=== PATIENT | female | born 1995 | race Hispanic/Latino ===

== ENCOUNTER 2017-08-16 17:52 | Emergency (ER) | payer MEDICAID, SELFPAY ==
[2017-08-16] MEDS ORDERED: Ibuprofen 200 MG TAB ONE (18:05)
== END 2017-08-16 20:02 | disposition home or self-care (01) ==
LOC: ERS 17:52
DX: J10.1 Influenza due to other identified influenza virus with other respiratory manifestations (principal)
CPT/HCPCS: 87804; 99283

== ENCOUNTER 2020-04-11 19:50 | Day surgery (SDC) | payer SELFPAY ==
[2020-04-11 20:21] VITALS: BMI 27.3
[2020-04-11 20:27] VITALS: BP 110/65; TEMP 98.9
--- NOTE | 2020-04-11 20:47 | PDOC.FPROB ---
FMR OB H&P: HPI - History of Present Illness Chief Complaint: leakage of fluid History of Present Illness: Pt is a 24yo female who presents for evalution of LOF for one day. Described as clear/yellowish fluid the consistency of water. Her underwear would be slightly wet, but did not soak through. +FM, irregular contractions, non-painful. Endorses vaginal pain. Hx of vaginal candidiasis this and was treated. Denies vaginal bleeding/discharge/itching. Primary Care Physician: TORSTEN Gan FMR OB H&P: Current - Care : 4 Para: 2102 Due date: 04/25/20 Dating Criteria: 5.4 wk sono - OB Labs Blood type: B RH: positive Antibody Screen: negative HIV: negative RPR: negative Rubella: immune Gonorrhea: negative Chlamydia: negative Pap Smear: NILM, 10/08/19 1 hour gtt: 2hr GTT 66/166/98 GBS: positive H&H: 02/07/20 11.4/32.8 Platelets: 215 Additional labs: sabino 10/2019 - Additional Ultrasound Additional: 04/01/20 [place] 89% FMR OB H&P: History - Past Medical History PMH: mild, intermittent asthma - OB History OB History: 03/16/20: presented to L&D for ctx, given 2 doses steroids 04/05/20: presented to L&D for ctx, /-3 2 deliveries at 37 wks, 1 @ 36wks, NSVDx3 Tdap on 02/02/20 - 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 - Surgical History Sx History: none - Social History Social History: no T/A/D - Family History Family History: Paternal grandmother- diabetes FMR OB H&P: Medications - Current Home Medications: Medication Instructions Recorded Confirmed Type Vitamin 1 tab PO DAILY #0 tab 02/17/04/05/20 Rx Allergies/Adverse Reactions: Allergies Allergy/AdvReac Type Severity Reaction Status Date / Time No Known Allergies Allergy Verified 04/11/20 20:19 FMR OB H&P: ROS - Review of Systems General: denies: fever/chills, fatigue Eyes: denies: vision changes, scotomas, floaters ENT: denies: rhinorrhea Cardiovascular: denies: chest pain, palpitation, edema Respiratory: denies: cough, congestion, shortness of breath Gastrointestinal: denies: abdominal pain, nausea, vomiting, diarrhea Genitourinary (Female): reports: incontinence, vaginal pain. denies: dysuria, vaginal discharge, vaginal bleeding, contractions Integumentary: denies: itching FMR OB H&P: Vital Signs - Maternal Vital signs: Vital Signs - First Documented Temp Pulse Resp BP 98.9 F 88 18 110/65 04/11/20 20:19 04/11/20 20:19 04/11/20 20:19 04/11/20 20:19 - Heart Tones Baseline: 140 Variability: moderate Acceleration: present Deceleration: absent Category: category 1 FMR OB H&P: Physical Exam - Physical Exam General: NAD, awake, alert and oriented HEENT: normocephalic and atraumatic, no scleral icterus, grossly normal vision, grossly normal hearing Neck: supple, FROM Heart: no edema General: no respiratory distress Abdomen: gravid Musculoskeletal: normal gait and station, no misalignment/asymmetry Neurological: no focal deficit Skin: no rash, no jaundice Psychiatric: intact recent and remote memory - Pelvic Exam Deviation from normal: no pooling of fluid, no expression of fluid with cough Deviation from normal: thick white discharge SVE: 50/-3 FMR OB H&P: A/P Discussion: Date/Time: 04/11/202044 #LOF - sterile spec exam showed no pooling or expression of fluid with cough, likely urinary incontinence - pending amnisure #vaginal discharge - on spec exam, white discharge noted, pt denies any itching, but c/o pain - pending: VP3 #sIUP - 3rd trimester , Tdap given 01/2020 - GBS positive - FHT: Cat 1 140/mod/+accel, no decels - SVE 50/-3, no change from exam one week ago - irregular, non-painful ctx - seen in hospital on 03/16/20 with complaint of contractions, given 2 doses steroid - continue routine f/u This H&P was discussed with Dr. Louie and Dr. Varghese Kelly who agree with the above documentation and plan.
[2020-04-11 21:37] LABS: Amnisure Test No Membranes Rupture (No Rupture)
[2020-04-11 21:38] LABS: Amnisure Internal Control QC ACCEPTABLE (ACCEPTABLE)
--- NOTE | 2020-04-11 22:19 | PDOC.BPN ---
- Brief Progress Note Encounter Date: 04/11/20 Encounter Time: 22:30 Pt is a 24yo female who presents for evalution of LOF for one day. -amnisure negative -VP3 postitive for sabino -FHT: Cat 1 baseline 140, mod gena, +accel, no decel -irregular contractions -SVE /-3, unchanged from one week ago Pt had no complaints and was agreeable to discharge. Will send in rx for diflucan. Pt to f/u outpatient with regular appointments Pily Diane, PGY1 Case discussed with Dr. Louie and Dr. Varghese Kelly who agree with the above documentation and plan.
== END 2020-04-11 22:40 | disposition home health service (06) ==
LOC: L&D/OP 19:50
DX: O99.89 Other specified diseases and conditions complicating pregnancy, childbirth and the puerperium (principal); N89.8 Other specified noninflammatory disorders of vagina; O98.813 Other maternal infectious and parasitic diseases complicating pregnancy, third trimester; B37.3 Candidiasis of vulva and vagina; O99.513 Diseases of the respiratory system complicating pregnancy, third trimester; J45.20 Mild intermittent asthma, uncomplicated; O99.820 Streptococcus B carrier state complicating pregnancy; Z3A.00 Weeks of gestation of pregnancy not specified
CPT/HCPCS: 84112; 87480; 87510; 87660; 99285

== ENCOUNTER 2020-04-20 16:39 | Inpatient (IN) | payer MEDICAID, OTHER ==
[2020-04-20] MEDS ORDERED: Lidocaine 1% (PF) 30 ML VIAL ONE (17:06)
[2020-04-20] MEDS ORDERED: NS / Oxytocin 40 units/1000ml 1,000 ML ONE (17:06)
[2020-04-20] MEDS ORDERED: Ondansetron PF 4 MG/2 ML Vial IVP PRN (17:11)
[2020-04-20] MEDS ORDERED: Butorphanol Tartrate 1 MG/ML VIAL SLOW IVP PRN (17:11)
[2020-04-20] MEDS ORDERED: Ibuprofen 800 MG TAB PO PRN (17:11)
[2020-04-20] MEDS ORDERED: Lidocaine 1% (PF) 30 ML VIAL SC PRN (17:11)
[2020-04-20] MEDS ORDERED: Misoprostol 200 MCG TAB PR PRN (17:11)
[2020-04-20] MEDS ORDERED: Acetaminophen 500 MG TAB PO PRN (17:11)
[2020-04-20] MEDS ORDERED: NS / Oxytocin 40 units/1000ml 1,000 ML IV PRN (17:11)
[2020-04-20] MEDS ORDERED: Promethazine HCl 25 MG/ML VIAL IM PRN (17:11)
[2020-04-20] MEDS ORDERED: Carboprost 250 MCG/ML AMP IM PRN (17:11)
[2020-04-20] MEDS ORDERED: hydrALAZINE 20 MG/ML VIAL SLOW IVP PRN ×2 (17:11→23:10)
[2020-04-20] MEDS ORDERED: Methylergonovine 0.2 MG/ML VIAL IM PRN (17:11)
[2020-04-20 17:22] LABS: Hemoglobin 11.7 g/dL (12.0-16.0); Mean Corpuscular HGB CONC 34.3 g/dL (32.0-36.0); Mean Corpuscular Hemoglobin 31.4 pg (27.0-31.0); Mean Corpuscular Volume 91.6 fL (78.0-98.0); Mean Platelet Volume 10.9 fL (7.4-10.4); Platelet Count 181 thou/uL (130-400); RBC Distribution Width 12.6 % (11.5-14.5); Red Blood Cell (RBC) Count 3.73 mill/uL (4.20-5.40); White Blood Cell (WBC) Count 8.9 thou/uL (4.8-10.8)
[2020-04-20] MEDS ORDERED: Fentanyl 4 mcg/Bup 0.1% Cadd 0 ML ONE (17:22)
[2020-04-20] MEDS ORDERED: Penicillin G Potassium 5 MILL.UNITS VIAL ONE (17:23)
--- NOTE | 2020-04-20 17:27 | PDOC.FPROB ---
FMR OB H&P: HPI - History of Present Illness Chief Complaint: contractions Indentification: 24F @ 39.2wga History of Present Illness: Patient is a 24F @ 39.2wga by 5.4wk sono presents with contractions. Contractions started at 230pm this afternoon. [place] to help them [place]. She states that she is feeling them every 2 minutes. Denies VD, VB, LOF. Denies SOB, LOPEZ, cp, abdominal pain, edema. Desires an epidural. GBS +. Hx of sabino vaginitis, treated. otherwise uncomplicated-see OB section for hx. Primary Care Physician: Nikhil FMR OB H&P: Current - Care : 4 Para: 3 Gestational age: 39.2 Due date: 04/25/20 Dating Criteria: 5.4wk sono - OB Labs Blood type: B RH: positive Antibody Screen: negative HIV: negative RPR: negative HepBsAg: negative Rubella: immune Gonorrhea: negative Chlamydia: negative Pap Smear: NILM 10/08/19 3 hour GTT: 66/166/98 GBS: positive H&H: 11.4/32.8 on 02/07/20 Platelets: 215 on 02/07/20 - Anatomy Survey Anatomy survey: sIUP, Cephalic, anterior placenta, 3 vessel cord, normal insertion FMR OB H&P: History - Past Medical History PMH: Asthma - OB History OB History: Hx of spontaneous labor: declined 17-OHP Hx of SGA fetus; 04/01 US for growth 89.8% 02/17/16- @ 38wga 03/11/15- @ 36wga 03/20/14- @ 39wga - 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: Hx of chlamydia in 2013, negative this - Social History Social History: Denies alcohol, smoking, drug use - Family History Family History: Family hx of DM in mother FMR OB H&P: Medications - Current Home Medications: Medication Instructions Recorded Confirmed Type Vitamin 1 tab PO DAILY #0 tab 02/18/16 04/05/20 Rx Fluconazole [Diflucan] 150 mg PO ONE #1 tablet 04/11/20 Rx Allergies/Adverse Reactions: Allergies Allergy/AdvReac Type Severity Reaction Status Date / Time No Known Allergies Allergy Verified 09/13/20 17:18 FMR OB H&P: ROS - Review of Systems General: denies: fever/chills, weight/appetite/sleep changes Eyes: denies: eye pain, vision changes ENT: denies: nasal congestion, rhinorrhea Cardiovascular: denies: chest pain, palpitation, edema Respiratory: denies: cough, shortness of breath Gastrointestinal: denies: abdominal pain, bright red blood Genitourinary (Female): reports: contractions. denies: vaginal discharge, vaginal bleeding Musculoskeletal: denies: pain, tenderness Neurologic: denies: seizures, weakness Integumentary: denies: itching, rash Breast: denies: skin changes Endocrine: denies: cold intolerance, heat intolerance Hematologic/Lymphatic: denies: prolonged or excessive bleeding, enlarged lymph nodes Psychological: denies: depression, anxiety FMR OB H&P: Vital Signs - Heart Tones Variability: moderate Acceleration: present Deceleration: variable Category: category 2 [place] contractions every: 2-3 FMR OB H&P: Physical Exam - Physical Exam General: awake, alert and oriented Deviation from normal: breathing through contractions HEENT: normocephalic and atraumatic, EOMI, conjunctiva clear, no scleral icterus Neck: supple, FROM Chest: non-tender to palpation, no lesions Heart: RRR, normal S1/S2 General: CTAB, no respiratory distress Abdomen: soft, gravid, bowel sound present Musculoskeletal: pulses present, FROM in all four extremities Neurological: no clonus, no focal deficit Skin: no rash, good tugor Lymphatic: no unusual bruising or bleeding, no purpura Psychiatric: intact recent and remote memory, good judgement and insight FMR OB H&P: Results - Labs Lab results: Laboratory Results - last 24 hr 04/20/20 17:15 WBC 8.9 RBC 3.73 L Hgb 11.7 L Hct 34.2 L MCV 91.6 MCH 31.4 H MCHC 34.3 RDW 12.6 Plt Count 181 MPV 10.9 H FMR OB H&P: A/P Disposition: Patient is a 24F @ 39.2wga by 5.4wk sono that presents with contractions #sIUP in active labor -amina since 230pm, q2min now -denies vb/vd/lof -8/100/0 , intact -FHT: baseline 140, moderate variability, one decel -expect patient to delivery within next hour #GBS positive -first dose of penicillin started #Hx of sabino vaginitis -treated #Hx of chlamydia in 2014 -treated, negative this #Hx of labor -at 39.2wga by 5.4wk sono today #Hx of asthma -avoid hemabate during delivery/ #FM HX of DM -3hr gtt neg Diet: NPO with ice chips Dispo: admit to L&D for expected delivery. Discussion: Date/Time: 04/20/201724 This H&P was discussed with [Krysta] and [Dior] who agree with the above documentation and plan. Signature: Lakeshia Acevedo MD PGY-2 Addendum - Attending - Attending Attestation Date/Time: 04/20/202023 I personally evaluated the patient and discussed the management with the team. I agree with the History, Examination, Assessment and Plan documented above with any addition or exceptions noted below.
[2020-04-20] MEDS ORDERED: Penicillin G Potassium 5 MILL.UNITS in Sodium Chloride 0.9% 100 ML IVPB SCH (17:30)
[2020-04-20 17:31] VITALS: BMI 25.6
[2020-04-20 18:09] LABS: HBSAg Index 0.17 S/CO (0-0.99); Hep B Surf Ag Non-Reactive S/CO (NonReactive); Syphilis Antibody Nonreactive (Nonreactive); Syphilis Antibody Index 0.03 S/CO (<1.00 Non-Reactive)
--- NOTE | 2020-04-20 19:31 | PDOC.OP ---
Operative Note - Operative Note Operative Note: Delivering Physician: Antonio Brody Attending: Dior Procedure: Spontaneous Vaginal Delivery QBL: 125 ml Pre-op Diagnosis: 1. Term intrauterine in labor 2. Hx of asthma 3. GBS positive Post-op Diagnosis: 1. Term intrauterine , delivered 2. same as above Indications: A 24 y/o female presents in active labor. Delivery Note: This is 24 yo F @ 39.2 wks who delivered a viable M at 17:51. Following an uneventful antepartum course, a vigorous M was delivered over an intact perineum in the left occipitoanterior position. Anterior Shoulder and then remainder of the body delivered. No nuchal cord. The head was held down and mouth and nares were bulb suctioned. Cord clamped and cut and cord blood collected. Placenta delivered intact with a 3 vessel cord noted. Fundal massage was performed and the fundus was firm. The cervix and vagina were inspected and found to be free of lacerations. went to nursery in good condition for routine care. Apgars were 8/9 at 1 & 5 minutes, respectively. Patient tolerated delivery well and went to after routine recovery/care. Addendum - Attending - Attending Attestation Date/Time: 04/20/202025 I was present for the entire delivery.
[2020-04-20] MEDS: Lactated Ringer's 1,000 ML IV SCH (19:34)
[2020-04-20] MEDS: Penicillin G 2.5 MILL.units 2.5 MILL.UNITS in Premix Bag 1 BAG IVPB SCH ×2 (19:34→23:09)
[2020-04-20] MEDS ORDERED: NS / Oxytocin 40 units/1000ml 1,000 ML IV SCH (23:10)
[2020-04-20] MEDS ORDERED: Milk Of Magnesia 30 ML UDCUP PO PRN (23:10)
[2020-04-20] MEDS ORDERED: Bisacodyl 10 MG SUPP PR PRN (23:10)
[2020-04-20] MEDS ORDERED: Docusate Calcium (SURFAK) 240 MG CAP PO SCH (23:15)
[2020-04-21] MEDS: Lactated Ringer's 1,000 ML IV SCH ×3 (02:37→13:56)
[2020-04-21] MEDS: Ibuprofen 800 MG TAB PO SCH ×3 (02:38→16:10)
[2020-04-21 05:31] LABS: #Lymphocytes 1.6 thou/uL (1.20-3.40); #Monocytes 0.7 thou/uL (0.11-0.59); %Eosinophils 0.5 % (0.0-10.0); %Lymphocytes 17.3 % (21.0-51.0); %Monocytes 7.6 % (0.0-10.0); %Neutrophils 74.6 % (42.0-75.0); Hemoglobin 10.1 g/dL (12.0-16.0); Mean Corpuscular Hemoglobin 30.3 pg (27.0-31.0); Mean Platelet Volume 10.9 fL (7.4-10.4); Platelet Count 167 thou/uL (130-400); RBC Distribution Width 12.5 % (11.5-14.5); Red Blood Cell (RBC) Count 3.32 mill/uL (4.20-5.40); White Blood Cell (WBC) Count 9.4 thou/uL (4.8-10.8)
[2020-04-21] MEDS: Ferrous Sulfate 325 MG TAB PO SCH ×2 (08:06→10:39)
[2020-04-21] MEDS: Docusate Calcium (SURFAK) 240 MG CAP PO SCH ×2 (08:06→21:34)
--- NOTE | 2020-04-21 08:48 | PDOC.PP ---
Post Progress Note Post Day #: 1 Subjective: Feeling well this morning except for some mild pelvic pain when she stands up to walk. Tolerating PO. PO intake tolerated: yes Flatus: yes Ambulation: yes Vital Signs (12 hours) Temp Pulse Resp BP Pulse Ox 04/21/20 08:32 98.6 F 86 20 92/58 L 99 04/21/20 04:00 98.4 F 64 16 103/55 L 04/20/20 23:40 98.8 F 70 16 103/55 L 04/20/20 22:40 98.8 F 69 16 109/60 04/20/20 21:40 98.8 F 65 16 112/62 99 04/20/20 21:17 82 112/59 L Weight Weight 63.503 kg - Physical Examination General: NAD Cardiovascular: no m/r/g, RRR Respiratory: clear to auscultation bilaterally Abdominal: + bowel sounds, lochia (downtrending), no distention, appropriately TTP Fundus firm & at: umbilicus Neurological: no gross focal deficits Psychiatric: A&Ox3 Result Diagrams: 04/21/20 05:15 Additional Labs: Post Labs Blood Type B POSITIVE 04/20/20 17:15 Hep Bs Antigen Non-Reactive S/CO (NonReactive) 04/20/20 17:15 (1) Normal vaginal delivery Code(s): O80 - ENCOUNTER FOR FULL-TERM UNCOMPLICATED DELIVERY Status: Acute - Assessment/Plan 24 yo G4 now P4004 delivered at 39.2 wga by 5.4 wk sono: s/p - PPD #1 - no complications - pain mgmt w/ ibuprofen - routine care - plans to formula feed GBS positive - inadequate Tx - monitor for 48 hr s/p delivery for fever Dispo: encourage PO intake and ambulation. Addendum - Attending - Attending Attestation Date/Time: 04/21/20 1213 I personally evaluated the patient and discussed the management with Dr. Hill and Nicho. I agree with the History, Examination, Assessment and Plan documented above with any addition or exceptions noted below.
[2020-04-21] MEDS ORDERED: Adacel (T-DAP) 0.5 ML SYRINGE IM ONE (09:00)
[2020-04-21] MEDS: Penicillin G 2.5 MILL.units 2.5 MILL.UNITS in Premix Bag 1 BAG IVPB SCH ×3 (10:39→18:54)
[2020-04-21 12:00] LABS: SARS-CoV-2 MS2 Positive; SARS-CoV-2 N Gene Negative; SARS-CoV-2 S Gene Negative; SARS-CoV-2 by NAA Not Detected (NotDetected); SARS-CoV-2 orf1ab Negative
[2020-04-22] MEDS: Penicillin G 2.5 MILL.units 2.5 MILL.UNITS in Premix Bag 1 BAG IVPB SCH ×5 (01:53→18:31)
[2020-04-22] MEDS: Lactated Ringer's 1,000 ML IV SCH ×3 (01:54→18:30)
[2020-04-22] MEDS: Ibuprofen 800 MG TAB PO SCH ×3 (01:54→14:32)
--- NOTE | 2020-04-22 06:45 | PDOC.PP ---
Post Progress Note Post Day #: 2 Subjective: Patient still having pain which does not resolve with ibuprofen when walking around. Pain in pubic area. Never had this with other deliveries, however did have epidurals with those deliveries and not with this one. Eating and passing gas well. PO intake tolerated: yes Flatus: yes Ambulation: yes (with pain) Vital Signs (12 hours) Temp Pulse Resp BP Pulse Ox 04/21/20 20:53 98.6 F 88 12 107/73 97 Weight Weight 63.503 kg - Physical Examination General: NAD Cardiovascular: RRR (soft systolic blowing murmur) Respiratory: clear to auscultation bilaterally, non-labored breathing Abdominal: + bowel sounds, lochia (downtrending), no distention, appropriately TTP Fundus firm & at: 3 fingerwidths below umbilicus Deviation from normal: DP pulses 2+, no edema Neurological: no gross focal deficits Psychiatric: A&Ox3 Result Diagrams: 04/21/20 05:15 Additional Labs: Post Labs Blood Type B POSITIVE 04/20/20 17:15 Hep Bs Antigen Non-Reactive S/CO (NonReactive) 04/20/20 17:15 (1) Normal vaginal delivery Code(s): O80 - ENCOUNTER FOR FULL-TERM UNCOMPLICATED DELIVERY Status: Acute - Assessment/Plan 24 yo G4 now P4004 delivered at 39.2 wga by 5.4 wk sono: s/p - PPD #2 - no complications, precipitous delivery - pain mgmt w/ ibuprofen - routine care - plans to formula feed - will perform vaginal exam prior to d/c and assess for hematoma. Apply ice/ heat as desired on pubic/perineal area. Unlikely urine infection as patient has no suprapubic tenderness and no dysuria. GBS positive - inadequate Tx - monitor for 48 hr s/p delivery for fever Dispo: likely d/c late this afternoon. F/U in 1 week. Addendum - Attending - Attending Attestation Date/Time: 04/22/20 1101 I personally evaluated the patient and discussed the management with Dr. Chavarria. I agree with the History, Examination, Assessment and Plan documented above with any addition or exceptions noted below.
[2020-04-22 08:20] VITALS: BP 108/57; TEMP 98.4
[2020-04-22] MEDS: Ferrous Sulfate 325 MG TAB PO SCH ×2 (10:04→18:31)
[2020-04-22] MEDS: Docusate Calcium (SURFAK) 240 MG CAP PO SCH (10:05)
--- NOTE | 2020-04-22 10:18 | PDOC.BPN ---
- Brief Progress Note Checked on patient again this AM. With walking today she felt much better. Denies noting any perineal lesion or abnormality. She declined vaginal exam and encouraged that her pain will improve with time given the improvement with walking this morning.
== END 2020-04-22 19:20 | disposition home or self-care (01) | DRG 807 ==
LOC: L&D/OP 16:39 → L&D 18:46 → 3SW 22:26
PROVIDERS: ADMIT Emergency Medicine; ATTEND Emergency Medicine
PROC: 10E0XZZ Delivery of Products of Conception, External Approach (ICD-10-PCS; principal; 2020-04-20)
DX: O99.824 Streptococcus B carrier state complicating childbirth (principal); Z37.0 Single live birth; Z3A.39 39 weeks gestation of pregnancy; Z86.19 Personal history of other infectious and parasitic diseases; J45.909 Unspecified asthma, uncomplicated; O99.52 Diseases of the respiratory system complicating childbirth; O71.7 Obstetric hematoma of pelvis; Z20.828 Contact with and (suspected) exposure to other viral communicable diseases
CPT/HCPCS: 36415; 85025; 85027; 86780; 86850; 86900; 86901; 87340; 87635; 99285; J2001; J2540; U0003